=== PATIENT | male | born 1955 | race Caucasian/White ===

== ENCOUNTER 2019-07-27 03:50 | Emergency (ER) | payer BC ==
[2019-07-27] MEDS ORDERED: Norepinephrine 4 MG/4 ML VIAL ONE (04:01)
[2019-07-27] MEDS ORDERED: Insulin Regular 300 UNITS/3 ML VIAL ONE (04:11)
[2019-07-27 04:26] LABS: Bicarbonate (HCO3v) 14.2 mmol/L (22.0-28.0); CO2 Tension (PvCO2) 75.5 mmHg (40.0-50.0); Calcium, Ionized 1.09 mmol/L (See Comments:); Chloride 113 mmol/L (98-107); Glucose 452 mg/dL (80-115); Hemoglobin - Calc 10.4 g/dL (14.0-18.0); Lactate 8.79 mmol/L (0.50-2.20); Potassium 6.4 mmol/L (3.5-5.1); Sodium 140 mmol/L (138-145); T. Carbon Dioxide 16.6 mmol/L (22.0-28.0); vO2 Saturation-calc 44.3 % (60.0-85.0)
[2019-07-27] MEDS ORDERED: EPINEPHrine 1 MG/10 ML Abboject SYRINGE ONE ×2 (04:32→06:00)
[2019-07-27] MEDS ORDERED: EPINEPHrine 1 MG/ML AMP ONE (06:00)
[2019-07-27] MEDS ORDERED: Calcium Chloride 1 GM/10 ML Abboject SYRINGE ONE (06:00)
[2019-07-27] MEDS ORDERED: DOPamine/D5W 400 mg/250 ml PREMIX ONE (06:00)
[2019-07-27] MEDS ORDERED: Sodium Bicarb 50 MEQ/50 ML VIAL ONE (06:00)
--- NOTE | 2019-07-27 07:46 | RAD ---
EXAM: Single view of the chest HISTORY: Central line placement and respiratory failure COMPARISON: None FINDINGS: Single view of the chest shows a normal sized cardiomediastinal silhouette. An endotrachea l tube is seen with its tip between the clavicles. A left IJ central venous catheter seen with its tip in the left subclavian region. No pneumothorax is seen. There is no evidence of consolidation, m ass, or pleural effusion. The bones are unremarkable. IMPRESSION: No evidence of acute cardiopulmonary disease
== END 2019-07-27 05:21 | disposition expired ==
LOC: ERS 03:50
DX: I46.9 Cardiac arrest, cause unspecified (principal); I26.99 Other pulmonary embolism without acute cor pulmonale; E11.9 Type 2 diabetes mellitus without complications; E66.01 Morbid (severe) obesity due to excess calories; I11.0 Hypertensive heart disease with heart failure; I50.9 Heart failure, unspecified; I25.2 Old myocardial infarction; N40.0 Benign prostatic hyperplasia without lower urinary tract symptoms; Z79.82 Long term (current) use of aspirin; Z79.4 Long term (current) use of insulin
CPT/HCPCS: 71045; 82330; 82435; 82565; 82803; 82947; 83605; 84132; 84295; 85014; 93005; 94002; J0171; J1265; J1815